=== PATIENT | female | born 1985 | race Caucasian/White ===

== ENCOUNTER 2016-11-24 13:52 | Inpatient (IN) | payer MEDICAID ==
[~2016-11-24] VITALS: Ht 152.4 cm; Wt 117.9 kg
[2016-11-24 14:22] VITALS: BP_SYST 125
[2016-11-24 15:14] LABS: CALCIUM 8.9 mg/dL (8.4-11.0); CREATININE 0.67 mg/dL (0.55-1.30); POTASSIUM 3.8 mmol/L (3.5-5.1)
[2016-11-24 15:18] LABS: ALBUMIN 3.8 g/dL (3.4-4.8); HEMATOCRIT 33.5 % (36-48); HEMOGLOBIN 10.7 g/dL (12.0-16.0); MEAN CORPUSCULAR HEMOGLOBIN 22 pg (27-31); MEAN CORPUSCULAR HGB CONC 32 % (32-36); MEAN CORPUSCULAR VOLUME 70 fL (79.0-98.0); PLATELET COUNT (AUTO) 362 K/uL (130-430); RED CELL DISTRIBUTION WIDTH 14.6 % (9.0-15.0); TOTAL BILIRUBIN 1.2 mg/dL (0.0-1.0); WHITE BLOOD COUNT (AUTO) 10.8 K/uL (4.8-10.8)
[2016-11-24 15:21] LABS: BILIRUBIN,URINE 2+ (NEGATIVE); BLOOD, URINE 3+ (NEGATIVE); CLARITY/URINE HAZY (CLEAR); COLOR,URINE AMBER (YELLOW); GLUCOSE,URINE NEGATIVE (NEGATIVE); KETONES,URINE 1+ (NEGATIVE); LEUKOCYTE ESTERASE ,URINE NEGATIVE (NEGATIVE); NITRITE, URINE NEGATIVE (NEGATIVE); PH,URINE 5.5 (5.0-8.0); PROTEIN URINE TRACE (NEGATIVE)
[2016-11-24] MEDS ORDERED: ONDANSETRON HCL 4 MG/2 ML VIAL IVP ONE (15:30)
[2016-11-24] MEDS ORDERED: MAG HYDROX/AL HYDROX/SIMETH 30 ML, LIDOCAINE VISCOUS 2% 15ML (PO) 10 ML, BELLADONNA ALK... PO ONE ×3 (15:30)
[2016-11-24] MEDS ORDERED: NACL 0.9% 1,000 ML IV ONE ×2 (15:30→15:45)
[2016-11-24 15:32] LABS: ATYPICAL LYMPHOCYTES % 0 % (0-0); BAND % (MANUAL) 0 % (0-6); BASOPHILS % (MANUAL) 0 % (0-2); EOSINOPHILS % (MANUAL) 0 % (0-7); LYMPHOCYTES % (MANUAL) 15 % (20-46); MONOCYTES % (MANUAL) 1 % (0-11)
[2016-11-24] MEDS ORDERED: PIPERACILLIN/TAZO 3.375 GM in NS 50 ML IV ONE (15:45)
[2016-11-24] MEDS ORDERED: MORPHINE 4 MG/ML INJ. SYRINGE IVP ONE (15:45)
[2016-11-24] MEDS ORDERED: PIPERACILLIN/TAZOBACTAM 3.375 GM/VIAL (ZOSYN) IV ONE (16:20)
[2016-11-24 16:34] LABS: BACTERIA,URINE RARE /HPF (None Seen); MUCUS,URINE 2+ /LPF (None Seen); RBC,URINE 20-50 /HPF (0-3); WBC,URINE 0-3 /HPF (0-3)
[2016-11-24] MEDS ORDERED: MORPHINE 2 MG/ML INJ. SYRINGE IVP ONE ×2 (17:30→18:00)
[2016-11-24 18:10] VITALS: BP_SYST 126
[2016-11-24] MEDS ORDERED: HYDROmorphone 1 MG INJ. 1 MG/ML AMPUL IVP PRN (18:45)
[2016-11-24] MEDS ORDERED: ONDANSETRON HCL 4 MG/2 ML VIAL IVP PRN (18:45)
[2016-11-24] MEDS: LR 1,000 ML IV SCH (19:03)
[2016-11-24] MEDS: FAMOTIDINE PF 20 MG/2 ML VIAL IVP SCH ×2 (19:04→20:20)
[2016-11-24 19:53] VITALS: BP_SYST 122
[2016-11-24] MEDS: KETOROLAC TROMETHAMINE 15 MG VIAL IVP PRN (20:20)
[2016-11-25] MEDS: LR 1,000 ML IV SCH ×4 (00:40→20:55)
[2016-11-25 01:07] VITALS: BP_SYST 116
[2016-11-25 05:05] VITALS: BP_SYST 109
[2016-11-25 07:53] LABS: BASOPHILS % (AUTO) 0.2 % (0.0-2.0); EOSINOPHILS % (AUTO) 0.3 % (0.0-4.0); HEMATOCRIT 30.3 % (36-48); HEMOGLOBIN 9.5 g/dL (12.0-16.0); LYMPHOCYTES # (AUTO) 1.8 K/uL (1.0-5.5); LYMPHOCYTES % (AUTO) 20.8 % (20.5-51.5); MEAN CORPUSCULAR HEMOGLOBIN 22 pg (27-31); MEAN CORPUSCULAR HGB CONC 31 % (32-36); MEAN CORPUSCULAR VOLUME 70 fL (79.0-98.0); MONOCYTES # (AUTO) 0.4 K/uL (0.0-1.0); MONOCYTES % (AUTO) 4.5 % (1.7-9.3); NEUTROPHILS # (AUTO) 6.4 K/uL (1.8-7.7); NEUTROPHILS % (AUTO) 74.2 % (40.0-70.0); PLATELET COUNT (AUTO) 289 K/uL (130-430); RED BLOOD CELL COUNT(AUTO) 4.34 MIL/uL (4.2-6.2); RED CELL DISTRIBUTION WIDTH 14.7 % (9.0-15.0); WHITE BLOOD COUNT (AUTO) 8.6 K/uL (4.8-10.8)
[2016-11-25 08:19] VITALS: BP_SYST 126
[2016-11-25] MEDS ORDERED: DIATR MEGLU/DIATRIZ SOD 30 ML SOLUTION PO ONE (08:25)
[2016-11-25 08:26] LABS: ALBUMIN 2.9 g/dL (3.4-4.8); CALCIUM 8.1 mg/dL (8.4-11.0); CREATININE 0.52 mg/dL (0.55-1.30); POTASSIUM 3.4 mmol/L (3.5-5.1); TOTAL BILIRUBIN 0.5 mg/dL (0.0-1.0); TOTAL PROTEIN, SERUM 6.5 g/dL (6.4-8.3)
[2016-11-25] MEDS: FAMOTIDINE PF 20 MG/2 ML VIAL IVP SCH ×2 (10:30→20:57)
[2016-11-25] MEDS ORDERED: IOHEXOL 100 ML IV ONE (10:52)
[2016-11-25 11:40] VITALS: BP_SYST 117
[2016-11-25] MEDS ORDERED: POTASSIUM CHLORIDE 20 MEQ/PKT PACKET PO ONE (11:45)
[2016-11-25] MEDS: KETOROLAC TROMETHAMINE 15 MG VIAL IVP PRN ×2 (12:24→20:57)
[2016-11-25 15:35] VITALS: BP_SYST 139
[2016-11-25 21:06] VITALS: BP_SYST 114
[2016-11-26 00:08] VITALS: BP_SYST 123
[2016-11-26 04:19] VITALS: BP_SYST 132
[2016-11-26] MEDS: LR 1,000 ML IV SCH ×3 (04:54→21:47)
[2016-11-26 07:34] LABS: BASOPHILS % (AUTO) 0.3 % (0.0-2.0); EOSINOPHILS % (AUTO) 0.3 % (0.0-4.0); HEMATOCRIT 29.3 % (36-48); HEMOGLOBIN 9.2 g/dL (12.0-16.0); LYMPHOCYTES % (AUTO) 23.7 % (20.5-51.5); MEAN CORPUSCULAR HEMOGLOBIN 22 pg (27-31); MEAN CORPUSCULAR HGB CONC 31 % (32-36); MEAN CORPUSCULAR VOLUME 70 fL (79.0-98.0); MONOCYTES # (AUTO) 0.4 K/uL (0.0-1.0); MONOCYTES % (AUTO) 4.5 % (1.7-9.3); NEUTROPHILS # (AUTO) 6.2 K/uL (1.8-7.7); NEUTROPHILS % (AUTO) 71.2 % (40.0-70.0); PLATELET COUNT (AUTO) 280 K/uL (130-430); RED BLOOD CELL COUNT(AUTO) 4.18 MIL/uL (4.2-6.2); RED CELL DISTRIBUTION WIDTH 14.4 % (9.0-15.0); WHITE BLOOD COUNT (AUTO) 8.6 K/uL (4.8-10.8)
[2016-11-26 08:01] LABS: ALBUMIN 2.9 g/dL (3.4-4.8); CALCIUM 8.4 mg/dL (8.4-11.0); CREATININE 0.57 mg/dL (0.55-1.30); POTASSIUM 3.4 mmol/L (3.5-5.1); TOTAL BILIRUBIN 0.4 mg/dL (0.0-1.0); TOTAL PROTEIN, SERUM 6.6 g/dL (6.4-8.3)
[2016-11-26 08:30] VITALS: BP_SYST 122
[2016-11-26] MEDS: FAMOTIDINE PF 20 MG/2 ML VIAL IVP SCH ×2 (09:32→21:47)
[2016-11-26] MEDS: POTASSIUM CHLORIDE 20 MEQ/PKT PACKET PO SCH (09:32)
[2016-11-26 11:47] VITALS: BP_SYST 119
[2016-11-26 14:06] LABS: HEPATITIS A AB, IgM Negative (Negative); HEPATITIS B CORE AB, IgM Negative (Negative); HEPATITIS B SURFACE AG Negative (Negative)
[2016-11-26 15:30] VITALS: BP_SYST 149
[2016-11-26 21:56] VITALS: BP_SYST 131
[2016-11-27 00:16] VITALS: BP_SYST 118
[2016-11-27 05:08] VITALS: BP_SYST 119
[2016-11-27 07:35] LABS: BASOPHILS % (AUTO) 0.3 % (0.0-2.0); EOSINOPHILS % (AUTO) 0.3 % (0.0-4.0); HEMOGLOBIN 9.5 g/dL (12.0-16.0); LYMPHOCYTES # (AUTO) 1.9 K/uL (1.0-5.5); LYMPHOCYTES % (AUTO) 21.8 % (20.5-51.5); MEAN CORPUSCULAR HEMOGLOBIN 22 pg (27-31); MEAN CORPUSCULAR HGB CONC 32 % (32-36); MEAN CORPUSCULAR VOLUME 70 fL (79.0-98.0); MONOCYTES # (AUTO) 0.4 K/uL (0.0-1.0); MONOCYTES % (AUTO) 4.4 % (1.7-9.3); NEUTROPHILS # (AUTO) 6.2 K/uL (1.8-7.7); NEUTROPHILS % (AUTO) 73.2 % (40.0-70.0); PLATELET COUNT (AUTO) 315 K/uL (130-430); RED BLOOD CELL COUNT(AUTO) 4.29 MIL/uL (4.2-6.2); RED CELL DISTRIBUTION WIDTH 14.8 % (9.0-15.0); WHITE BLOOD COUNT (AUTO) 8.5 K/uL (4.8-10.8)
[2016-11-27 08:05] LABS: ALBUMIN 3.1 g/dL (3.4-4.8); CALCIUM 8.7 mg/dL (8.4-11.0); CREATININE 0.61 mg/dL (0.55-1.30); POTASSIUM 3.3 mmol/L (3.5-5.1); TOTAL BILIRUBIN 0.4 mg/dL (0.0-1.0)
[2016-11-27 08:28] LABS: IRON (SERUM) 20 mcg/dL (37-145); TOTAL IRON BIND. CAPACITY 279 ug/dL (250-450)
[2016-11-27 08:40] VITALS: BP_SYST 116
[2016-11-27] MEDS: FAMOTIDINE PF 20 MG/2 ML VIAL IVP SCH ×2 (09:16→21:00)
[2016-11-27] MEDS: POTASSIUM CHLORIDE 20 MEQ/PKT PACKET PO SCH (09:16)
[2016-11-27 11:38] VITALS: BP_SYST 112
[2016-11-27] MEDS ORDERED: MAG-AL HYDROX/SIMETH 30 ML UDC PO PRN (12:00)
[2016-11-27] MEDS ORDERED: LOPERAMIDE HCL 2 MG CAPSULE PO PRN (12:00)
[2016-11-27] MEDS: SOD FERRIC GLUC COMPLEX/SUC 125 MG in NS 100 ML IV SCH (13:47)
[2016-11-27] MEDS: LR 1,000 ML IV SCH (13:53)
[2016-11-27 15:40] VITALS: BP_SYST 126
[2016-11-27 19:15] VITALS: BP_SYST 125
[2016-11-27 20:02] LABS: PROTHROMBIN TIME 10.9 SECS (9.5-12.5)
[2016-11-27] MEDS ORDERED: ROCURONIUM BROMIDE 10 MG/ML (ZEMURON) IV ONE (20:35)
[2016-11-27] MEDS ORDERED: CEFAZOLIN 2 GM IVPB PREMIX 50 ML IV ONE (20:35)
[2016-11-27] MEDS ORDERED: MIDAZOLAM HCL 5 MG/5 ML VIAL IVP ONE (20:35)
[2016-11-27] MEDS ORDERED: PROPOFOL 200MG/ 20ML VIAL (DIPRIVAN) IV ONE (20:35)
[2016-11-27] MEDS ORDERED: NS IRRIG SOLN 1000 ML IR ONE (20:35)
[2016-11-27] MEDS ORDERED: BUPIVACAINE /EPINEPHRINE/PF 0.25% 30 ML VIAL INJ ONE (20:35)
[2016-11-27] MEDS ORDERED: ONDANSETRON HCL 4 MG/2 ML VIAL IVP ONE (20:35)
[2016-11-27] MEDS ORDERED: GLYCOPYRROLATE 0.2 MG/ML VIAL IJ ONE (20:35)
[2016-11-27] MEDS ORDERED: NS 1000 ML BAG IV ONE (20:35)
[2016-11-27] MEDS ORDERED: SEVOFLURANE 15 MIN GAS INH ONE (20:35)
[2016-11-27] MEDS ORDERED: NEOSTIGMINE METHYLSULFATE 1 MG/ML, 10 ML VIAL IVP ONE (20:35)
[2016-11-27] MEDS ORDERED: fentaNYL CITRATE 250 MCG/5 ML AMP IV ONE (20:35)
[2016-11-27] MEDS ORDERED: LR 1,000 ML IV SCH (21:28)
[2016-11-27] MEDS ORDERED: METOCLOPRAMIDE HCL 10 MG/2 ML VIAL IVP PRN (21:30)
[2016-11-27] MEDS ORDERED: MORPHINE 2 MG/ML INJ. SYRINGE IVP PRN ×3 (21:30)
[2016-11-27] MEDS ORDERED: HYDROcodone/ACETAMIN 5-325 MG TAB (NORCO/ VICODIN) PO PRN (22:30)
[2016-11-27] MEDS ORDERED: MORPHINE 4 MG/ML INJ. SYRINGE ONE (22:39)
[2016-11-28] VITALS (11 sets, daily range): BP systolic 110–138
[2016-11-28] MEDS ORDERED: MORPHINE 4 MG/ML INJ. SYRINGE IVP PRN ×3 (00:29)
[2016-11-28] MEDS: LR 1,000 ML IV SCH (04:47)
[2016-11-28 06:43] LABS: BASOPHILS % (AUTO) 0.1 % (0.0-2.0); EOSINOPHILS % (AUTO) 0.1 % (0.0-4.0); HEMATOCRIT 31.5 % (36-48); LYMPHOCYTES # (AUTO) 1.8 K/uL (1.0-5.5); LYMPHOCYTES % (AUTO) 14.4 % (20.5-51.5); MEAN CORPUSCULAR HEMOGLOBIN 22 pg (27-31); MEAN CORPUSCULAR HGB CONC 32 % (32-36); MEAN CORPUSCULAR VOLUME 71 fL (79.0-98.0); MONOCYTES # (AUTO) 0.4 K/uL (0.0-1.0); NEUTROPHILS # (AUTO) 10.4 K/uL (1.8-7.7); NEUTROPHILS % (AUTO) 82.4 % (40.0-70.0); PLATELET COUNT (AUTO) 364 K/uL (130-430); RED BLOOD CELL COUNT(AUTO) 4.46 MIL/uL (4.2-6.2); RED CELL DISTRIBUTION WIDTH 14.3 % (9.0-15.0); WHITE BLOOD COUNT (AUTO) 12.6 K/uL (4.8-10.8)
[2016-11-28 06:59] LABS: ALBUMIN 3.3 g/dL (3.4-4.8); CALCIUM 8.6 mg/dL (8.4-11.0); CREATININE 0.6 mg/dL (0.55-1.30); POTASSIUM 3.9 mmol/L (3.5-5.1); TOTAL BILIRUBIN 0.4 mg/dL (0.0-1.0); TOTAL PROTEIN, SERUM 7.4 g/dL (6.4-8.3)
[2016-11-28] MEDS: FAMOTIDINE PF 20 MG/2 ML VIAL IVP SCH (09:28)
[2016-11-28] MEDS: POTASSIUM CHLORIDE 20 MEQ/PKT PACKET PO SCH (09:28)
[2016-11-28] MEDS: SOD FERRIC GLUC COMPLEX/SUC 125 MG in NS 100 ML IV SCH (11:13)
[2016-11-28] MEDS ORDERED: ONDA4TAB5 SL (12:17)
[2016-11-28] MEDS ORDERED: HYDR-1189 PO (12:18)
[2016-11-28] MEDS ORDERED: MULT PO (12:18)
[2016-12-02 12:22] LABS: FOLATE (FOLIC ACID) >20.0 ng/mL (>3.0)
== END 2016-11-28 14:00 | disposition home or self-care (01) | DRG 263 ==
LOC: SED 13:52 → STU 15:57 → SMU 18:03
PROVIDERS: ADMIT Internal Medicine Hospice and Palliative Medicine; ATTEND Internal Medicine
PROC: 0FT44ZZ Resection of Gallbladder, Percutaneous Endoscopic Approach (ICD-10-PCS; principal; 2016-11-27 20:00)
DX: K80.00 Calculus of gallbladder with acute cholecystitis without obstruction (principal); K85.10 Biliary acute pancreatitis without necrosis or infection; K76.0 Fatty (change of) liver, not elsewhere classified; Z68.43 Body mass index [BMI] 50.0-59.9, adult; K75.4 Autoimmune hepatitis; F17.210 Nicotine dependence, cigarettes, uncomplicated; E87.6 Hypokalemia; D50.9 Iron deficiency anemia, unspecified; E66.01 Morbid (severe) obesity due to excess calories; K66.0 Peritoneal adhesions (postprocedural) (postinfection)
CPT/HCPCS: 36415; 74181; 76700-TC; 78226; 80053; 80061; 80074; 81000-TC; 82150-TC; 82607; 82746; 83540-TC; 83550-TC; 83605; 83690-TC; 84703; 85007; 85025; 85027; 85610-TC; 85730-TC; 87040-TC; 88304; 94010; 99285; A9537; C1727; J0690; J1170; J1885; J2001; J2250; J2270; J2405; J2543; J2704; J2710; J2916; J3010; J3490; J7030; J7120; Q9964; Q9967

== ENCOUNTER 2019-04-19 14:03 | Emergency (ER) | payer MEDICAID ==
[~2019-04-19] VITALS: Ht 154.9 cm; Wt 115.2 kg
[~2019-04-19 14:03] MED LIST: HYDR-1189 PO; MULT PO; ONDA4TAB5 SL
[2019-04-19 14:23] VITALS: BP_SYST 143
--- NOTE | 2019-04-19 17:02 | NUR ---
Patient to ER bed 3 to gown for evaluation. Side rails up. Report given to Lico MACHADO.
--- NOTE | 2019-04-19 17:07 | NUR ---
Patient is awake, alert, and oriented x4. Patient has a rash on both arms, trunk of body, and inner thighs. She was treated for scabies, but has not improved. Patient reports irritation when lose clothing rubs on her body, itchiness, and small amount of clear discharge when a bump pops.
--- NOTE | 2019-04-19 17:16 | NUR ---
ER BERTHA Zuniga examining patient.
--- NOTE | 2019-04-19 17:56 | NUR ---
Patient given written and verbal discharge instructions and verbalizes understanding. ER MD discussed with patient the results and treatment provided. Patient in stable condition. ID arm band removed. Rx of prednisone, mremethrin 5%, benadryl given. Patient educated on pain management and to follow up with PMD. Pain Scale 0/10. Opportunity for questions provided and answered. Medication side effect fact sheet provided.
[2019-04-19 18:01] VITALS: BP_SYST 138
== END 2019-04-19 18:01 | disposition home or self-care (01) ==
LOC: SED 14:03
DX: R21 Rash and other nonspecific skin eruption (principal); R03.0 Elevated blood-pressure reading, without diagnosis of hypertension
CPT/HCPCS: 99283